=== PATIENT | female | born 1955 | race Caucasian/White ===

== ENCOUNTER 2022-10-23 14:49 | Emergency (ER) | payer MEDICARE, MEDICAID ==
[2022-10-23] MEDS ORDERED: Meclizine 25 MG Tab PO ONE (15:42)
[2022-10-23 17:47] VITALS: BP 128/79; PULSE 74
== END 2022-10-23 17:45 | disposition home or self-care (01) ==
LOC: JP.ED 14:49
DX: R42 Dizziness and giddiness (principal); I10 Essential (primary) hypertension; E11.9 Type 2 diabetes mellitus without complications; Z79.82 Long term (current) use of aspirin; Z79.4 Long term (current) use of insulin; Z87.891 Personal history of nicotine dependence; Z79.899 Other long term (current) drug therapy; Z88.1 Allergy status to other antibiotic agents
CPT/HCPCS: 99283; A9270

== ENCOUNTER 2022-10-25 21:24 | Emergency (ER) | payer MEDICARE, MEDICAID ==
[2022-10-25 21:43] VITALS: BP 127/56; PULSE 110
== END 2022-10-25 22:41 | disposition home or self-care (01) ==
LOC: JP.ED 21:24
DX: E11.649 Type 2 diabetes mellitus with hypoglycemia without coma (principal); I10 Essential (primary) hypertension; Z88.1 Allergy status to other antibiotic agents; Z79.82 Long term (current) use of aspirin; Z87.891 Personal history of nicotine dependence; Z79.4 Long term (current) use of insulin
CPT/HCPCS: 82947; 99283

== ENCOUNTER 2024-04-18 10:22 | Emergency (ER) | payer MEDICARE, MEDICAID ==
[2024-04-18 11:33] LABS: BASOPHILS PERCENT AUTO 0.4 % (0.1-1.3); EOSINOPHILS PERCENT AUTO 0.4 % (0.0-5.4); HEMATOCRIT 28.2 % (34.3-46.0); HEMOGLOBIN 8.4 g/dL (11.2-15.5); IMMATURE GRAN PERCENT AUTO 0.2 % (0.0-0.7); LYMPHOCYTES ABSOLUTE AUTO 1.09 K/uL (0.8-3.3); LYMPHOCYTES PERCENT AUTO 21.3 % (11.4-47.7); MEAN CORPUSCULAR HEMOGLOBIN 21.3 pg (31.6-35.5); MEAN CORPUSCULAR HGB CONC 29.8 g/dL (31.6-35.5); MEAN CORPUSCULAR VOLUME 71.4 fL (81.4-99.0); MONOCYTES ABSOLUTE AUTO 0.52 K/uL (0.20-0.90); MONOCYTES PERCENT AUTO 10.2 % (3.3-12.6); NEUTROPHILS ABSOLUTE AUTO 3.46 K/uL (1.0-7.6); NEUTROPHILS PERCENT AUTO 67.5 % (40.0-78.1); PLATELET COUNT,PLT 306 K/uL (130-375); RED BLOOD CELL COUNT 3.95 M/uL (3.77-5.24); WHITE BLOOD CELL COUNT,WBC 5.1 K/uL (3.2-11.0)
[2024-04-18 11:45] LABS: BASOPHILS ABSOLUTE AUTO 0.02 K/uL (0.00-0.10); EOSINOPHILS ABSOLUTE AUTO 0.02 K/uL (0.00-0.40); IMMATURE GRAN ABSOLUTE AUTO 0.01 K/uL (0.00-0.23)
[2024-04-18 11:49] LABS: CALCIUM 9.6 mg/dL (8.5-10.1); CREATININE 0.7 mg/dL (0.6-1.0); EST CRCL DRUG DOSING (CG) 71.6 mL/min; POTASSIUM,K 3.5 mmol/L (3.6-5.2)
[2024-04-18 11:50] LABS: ANION GAP 13.5 mmol/L (5.0-14.0)
[2024-04-18] MEDS ORDERED: Diltiazem 25 MG/5 ML SDV IVPUSH ONE (12:10)
[2024-04-18] MEDS ORDERED: Sodium Chloride 0.9% 10 ML Syringe FLUSH PRN (12:23)
[2024-04-18] MEDS: Sodium Chloride 0.9% 500 ML IV ONE ×2 (12:30→13:11)
[2024-04-18 13:09] VITALS: BP 156/61; PULSE 83
== END 2024-04-18 14:07 | disposition home or self-care (01) ==
LOC: JP.ED 10:22
DX: E86.0 Dehydration (principal); D64.9 Anemia, unspecified; I10 Essential (primary) hypertension; E11.9 Type 2 diabetes mellitus without complications; Z90.49 Acquired absence of other specified parts of digestive tract; Z87.891 Personal history of nicotine dependence; Z79.82 Long term (current) use of aspirin; Z79.4 Long term (current) use of insulin; Z88.3 Allergy status to other anti-infective agents
CPT/HCPCS: 36415; 70450; 70450-26; 80048; 85025; 93005; 93010; 96360; 96361; 99283; 99284-25; J7040